=== PATIENT | male | born 1935 | race Caucasian/White ===

== ENCOUNTER → 2017-09-22 | Emergency (ER) | payer OTHER ==
[~2017-09-22] VITALS: Ht 182.9 cm; Wt 81.6 kg
[~2017-09-22] MED LIST: HYDROCODONE/APAP 10/325MG 1 EA TABLET ONE; HYDROCODONE/APAP 10/325MG 1 EA TABLET PO ONE; ONDANSETRON 4 MG TAB.RAPDIS ONE; ONDANSETRON 4 MG TAB.RAPDIS SL ONE
--- NOTE | 2017-09-22 14:30 | NUR ---
[id number] FOR BACK PAIN S/P FALL 2 WKS AGO, ALREADY SEEN AT AN ER AT [facility] [place]. PER DAUGHTER, "PATIENTS BACK IS BROKEN." PATIENT IS A/O X 4. BREATHING EVEN AND UNLABORED. NO SOB. NAD, SAFETY AND COMFORT MEASURES IN PLACE. AWAITING MD ORDERS.
[2017-09-22 16:07] LABS: BASOPHILS # (AUTO) 0.1 /CMM (0.0-0.2); BASOPHILS % (AUTO) 0.7 % (0.0-2.0); EOSINOPHILS # (AUTO) 0.1 /CMM (0.0-0.7); EOSINOPHILS % (AUTO) 1.2 % (0.0-6.0); HEMATOCRIT 42 % (39-51); HEMOGLOBIN 14.4 g/dL (13.5-17.5); LYMPHOCYTES # (AUTO) 1.4 /CMM (0.8-4.8); LYMPHOCYTES % (AUTO) 19.5 % (20.0-44.0); MEAN CORPUSCULAR HEMOGLOBIN 31 PG (26.0-33.0); MEAN CORPUSCULAR HGB CONC 34 g/dl (31.0-36.0); MEAN CORPUSCULAR VOLUME 90 fL (80-96); MONOCYTES # (AUTO) 0.6 /CMM (0.1-1.30); MONOCYTES % (AUTO) 8.2 % (2.0-12.0); NEUTROPHILS # (AUTO) 5.2 /CMM (1.8-8.9); NEUTROPHILS % (AUTO) 70.4 % (43.0-81.0); PLATELET COUNT (AUTO) 275 /CMM (150-450); RDW COEFFICIENT OF VARIATION 12.1 (11.5-15.0); WHITE BLOOD COUNT (AUTO) 7.4 K/uL (4.3-11.0)
--- NOTE | 2017-09-22 16:15 | NUR ---
PATIENT TAKEN TO CT VIA STRETCHER.
[2017-09-22 16:16] LABS: CALCIUM, SERUM 9.1 mg/dL (8.5-10.1); CARBON DIOXIDE 31 mmol/L (21-32); CHLORIDE 100 mmol/L (98-107); CREATININE 0.9 mg/dL (0.6-1.3); GLUCOSE 106 mg/dL (74-106); SODIUM SERUM 136 mmol/L (136-145); UREA NITROGEN, BLOOD 17 mg/dL (7-18)
--- NOTE | 2017-09-22 16:35 | NUR ---
PATIENT RETURNED FROM CT IN STABLE CONDITION.
[2017-09-22 19:27] VITALS: BP 164/91
--- NOTE | 2017-09-22 19:28 | NUR ---
Patient discharged to home in stable condition. Written and verbal after care instructions given. Patient verbalizes understanding of instruction.
== END | disposition home or self-care (01) ==
LOC: ER 14:17
DX: M48.56XA Collapsed vertebra, not elsewhere classified, lumbar region, initial encounter for fracture (principal); I10 Essential (primary) hypertension; R29.6 Repeated falls
CPT/HCPCS: 36415; 72131-TC; 80048-TC; 85025-TC; A4606; Q0162; Z7610